=== PATIENT | male | born 1970 | race Caucasian/White ===

== ENCOUNTER 2022-11-26 05:55 | Day surgery (SDC) | payer BC, OTHER ==
[2022-11-26] MEDS ORDERED: Lactated Ringers 1,000 ML IV SCH (06:30)
[2022-11-26] MEDS ORDERED: DIPRIVAN 200 MG/20 ML IV ONE ×2 (08:32→08:53)
[2022-11-26] MEDS ORDERED: Xylocaine-Mpf 2% 5 Ml Vial ONE (08:32)
[2022-11-26] MEDS ORDERED: Versed 2 MG/2 ML Injection ONE (08:33)
[2022-11-26 09:51] VITALS: BP 117/76; PULSE 75; O2SAT 100
--- NOTE | 2022-11-26 10:22 | OP ---
SURGERY DATE/TIME: 11/26/2022 0840 PREOPERATIVE DIAGNOSIS: Screening colonoscopy. POSTOPERATIVE DIAGNOSIS: Normal colon. PROCEDURE: Colonoscopy. SURGEON: Kavon Gifford M.D. ANESTHESIA: MAC by Petey Thomas CRNA. ESTIMATED BLOOD LOSS: None. SPECIMENS: None. DESCRIPTION OF PROCEDURE: After informed written consent was obtained, the patient was taken to the endoscopy suite. He was placed in left lateral decubitus position and anesthesia was titrated to desired level of consciousness. Digital rectal exam showed normal sphincter tone and no internal lesions. The scope was inserted into the rectum and sequentially the entire colonic mucosa was traversed. The level of cecum was reached and verified with direct visualization of the ileocecal valve. Upon withdrawal careful mucosal inspection revealed no gross abnormalities. Prep was noted to be fair. Prior to withdrawal retroflexion showed no internal lesions. The scope was removed. The patient was transferred to the recovery room in good condition.
== END 2022-11-26 09:55 | disposition home or self-care (01) ==
LOC: SDC 05:55
PROVIDERS: ATTEND Family Medicine
DX: Z12.11 Encounter for screening for malignant neoplasm of colon (principal)
CPT/HCPCS: J2250; J2704

== ENCOUNTER 2024-10-12 06:01 | Day surgery (SDC) | payer BC ==
[2024-10-12] MEDS ORDERED: Lactated Ringers 1,000 ML IV ONE (06:08)
[2024-10-12] MEDS: Lactated Ringers 1,000 ML IV SCH (06:15)
[2024-10-12 06:24] VITALS: RESP 16
[2024-10-12] MEDS ORDERED: propofoL IV ONE (06:24)
[2024-10-12] MEDS ORDERED: Versed 2 MG/2 ML Injection ONE (06:38)
[2024-10-12] MEDS ORDERED: Xylocaine-Mpf 2% 5 Ml Vial ONE (06:40)
--- NOTE | 2024-10-12 07:20 | PCM.DCORD ---
- Discharge Disposition: Home, Self-Care Condition: Stable Prescriptions: New PANTOPRAZOLE 40 mg Tablet [Protonix 40MG Tablet] 40 mg PO QPM #30 tab Continue Primidone 50 MG [Mysoline 50Mg] 1 tab PO DAILY Cholecalciferol (Vitamin D3) [Weekly-D] 1,250 mcg PO WEEKLY Albuterol Sulfate [Albuterol Sulfate Hfa] 8.5 gm IH Q6HPRN PRN PRN Reason: Cough Dextroamphetamine/Amphetamine [Adderall 10 mg Tablet] 10 mg PO UD Simvastatin 10 mg [Zocor 10MG] 10 mg PO UD Follow up with: ABDULLAHI AMOS MD [Primary Care Provider] -
[2024-10-12 07:58] VITALS: BP 114/74; PULSE 68; TEMP 96.8; O2SAT 95
--- NOTE | 2024-10-13 09:45 | OP ---
SURGERY DATE/TIME: 10/12/2024 [id number] PREOPERATIVE DIAGNOSIS: Dysphagia. POSTOPERATIVE DIAGNOSES: 1) Small hiatal hernia. 2) Distal esophagitis. PROCEDURE: Esophagogastroduodenoscopy. SURGEON: Kavon Gifford MD ANESTHESIA: MAC by Petey Thomas CRNA ESTIMATED BLOOD LOSS: Minimal. SPECIMENS: Two cold forceps biopsies from the GE junction. DESCRIPTION OF PROCEDURE AND FINDINGS: After informed written consent was obtained, the patient was taken to the endoscopy suite. He was placed in the left lateral decubitus position, and a bite block was inserted. Anesthesia was titrated to the desired level of consciousness and then the endoscope was inserted in the posterior oropharynx. Under direct visualization, the esophagus was traversed. The esophageal mucosa had a normal appearance free of any lesions or defects, there was a small hiatal hernia. Upon entering the stomach, there was normal rugated gastric mucosa. Pylorus appeared normal. It was traversed. First and second portions of the duodenum had a normal mucosal appearance. Upon withdrawal again, a small hiatal hernia was appreciable. The remainder of the exam was unremarkable other than the distal esophagus/GE junction showed some mild inflammatory changes. Two cold forceps biopsies were taken from the GE junction and sent for pathology testing. The remainder of the exam was unremarkable. Scope was removed. The patient was transferred to the recovery room in good condition. I recommend initiation of PPI therapy and follow up in 1 week for pathology report.
== END 2024-10-12 08:15 | disposition home or self-care (01) ==
LOC: SDC 06:01
PROVIDERS: ATTEND Family Medicine
DX: K44.9 Diaphragmatic hernia without obstruction or gangrene (principal); R13.10 Dysphagia, unspecified; K20.90 Esophagitis, unspecified without bleeding; R09.89 Other specified symptoms and signs involving the circulatory and respiratory systems
CPT/HCPCS: J2250; J2704